=== PATIENT | female | born 1955 | race Caucasian/White ===

== ENCOUNTER 2016-12-14 01:21 | Emergency (ER) | payer BC ==
[~2016-12-14] VITALS: Ht 162.6 cm; Wt 75.8 kg
[2016-12-14 02:15] VITALS: BP 168/102
== END 2016-12-14 02:19 | disposition home or self-care (01) ==
LOC: EXP 01:21 → EME 01:21 → EXP 02:19
PROC: 3E0234Z Introduction of Serum, Toxoid and Vaccine into Muscle, Percutaneous Approach (ICD-10-PCS; principal; 2016-12-14)
DX: S00.81XA Abrasion of other part of head, initial encounter (principal); W55.03XA Scratched by cat, initial encounter; Z23 Encounter for immunization
CPT/HCPCS: 99281; 99283